=== PATIENT | female | born 1990 | race American Indian/Alaskan Native ===

== ENCOUNTER 2016-10-19 07:04 | Outpatient (CLI) | payer MEDICAID ==
[2016-10-19 07:32] VITALS: BP 95/56
== END 2016-10-19 08:20 | disposition home or self-care (01) ==
LOC: TRG 07:04
PROVIDERS: ATTEND Obstetrics & Gynecology
DX: O47.1 False labor at or after 37 completed weeks of gestation (principal); Z3A.37 37 weeks gestation of pregnancy
CPT/HCPCS: 59025

== ENCOUNTER 2017-08-04 06:36 | Outpatient (CLI) | payer MEDICAID ==
[2017-08-04] MEDS ORDERED: LACTATED RINGERS 500 ML IV ONE (06:46)
[2017-08-04] MEDS ORDERED: LACTATED RINGERS 1,000 ML IV ONE (07:22)
[2017-08-04] MEDS ORDERED: NORMOSOL-R PH 7.4 1,000 ML IV ONE (07:40)
[2017-08-04 08:16] LABS: Amphetamine Screen,Urine PRESUMPTIVE NEGATIVE; Benzodiazepines Screen,Urine PRESUMPTIVE NEGATIVE; Cocaine Screen,Urine PRESUMPTIVE NEGATIVE; Methadone Screen,Urine PRESUMPTIVE NEGATIVE; Opiate Screen,Urine PRESUMPTIVE NEGATIVE
[2017-08-04 08:30] LABS: Cannabinoid Screen,Urine PRESUMPTIVE POSITIVE
[2017-08-04 08:38] LABS: Bilirubin,Urine NEG (Negative); Blood,Urine NEG (Negative); Color,Urine Yellow (Yellow); Mucus,Urine FEW /HPF; Urobilinogen,Urine < 2.0 mg/dL (<2.0)
--- NOTE | 2017-08-04 09:52 | Ultrasound Report ---
OB ULTRASOUND History well being, heart deceleration, abdominal pain. Technique: Transabdominal ultrasound with Doppler interrogation. Gestation: Single Position: Cephalic Amniotic Fluid: Normal PHILL = 11.8 cm Placenta: Posterior Placental Grade: 0 Heart Rate: 146 BPM Cervical length: 4.6 cm (Normal > 3 cm) NEUROANATOMY VISUALIZED: Choroid Plexus Cisterna Magnum Cerebellum Lateral Ventricle ANATOMY VISUALIZED: Stomach Kidneys Bladder Diaphragm 4 Chamber Heart Heart 3 Vessel Cord Abd. Cord Insert SPINE VISUALIZED: Longitudinal BPD: 5.9 cm = 24 w 2 d HC: 22.8 cm = 24 w 6 d AC: 20.2 cm = 24 w 6 d FL: 4.6 cm = 25 w 3 d HC/AC Ratio: 1.13 Cephalic Index: 79.9 Estimated Weight: 761 grams Clinical age = 25 w 1 d EDC: 11/16/17 US Gest. Age = 24 w 6 d EDC: 11/18/17 IMPRESSION: Viable, single intrauterine as described.
[2017-08-04 12:12] VITALS: BP 77/42
== END 2017-08-04 12:25 | disposition home or self-care (01) ==
LOC: TRG 06:36
PROVIDERS: ATTEND Obstetrics & Gynecology
DX: O21.2 Late vomiting of pregnancy (principal); O26.892 Other specified pregnancy related conditions, second trimester; R10.9 Unspecified abdominal pain; R51 Headache; Z79.899 Other long term (current) drug therapy; Z3A.25 25 weeks gestation of pregnancy
CPT/HCPCS: 59025; 76805; 80307; 81001; 96360

== ENCOUNTER 2017-10-28 13:33 | Outpatient (CLI) | payer MEDICAID ==
[2017-10-28 14:02] VITALS: BP 109/61
== END 2017-10-28 14:35 | disposition home or self-care (01) ==
LOC: TRG 13:33
PROVIDERS: ATTEND Obstetrics & Gynecology Gynecology
DX: O26.893 Other specified pregnancy related conditions, third trimester (principal); R10.9 Unspecified abdominal pain; R51 Headache; Z3A.37 37 weeks gestation of pregnancy
CPT/HCPCS: 59025